=== PATIENT | female | born 1990 | race Caucasian/White ===

== ENCOUNTER 2018-06-30 21:18 | Emergency (ER) | payer OTHER ==
[2018-07-01] MEDS ORDERED: TETRACAINE HCL 0.5% OPH SOLN 4 ML OS ONE (01:09)
[2018-07-01] MEDS ORDERED: POLYMYXIN B SULFATE/TMP OPH SOLN 10 ML OS ONE (01:17)
--- NOTE | 2018-07-01 01:17 | ER Document Report ---
ED Foreign Body - General Chief Complaint: Foreign Body in Eye Stated Complaint: EYE PROBLEM Time Seen by Provider: 07/01/18 01:03 Primary Care Provider: SHAD SIERRA MD [ACTIVE STAFF] - Follow up as needed Notes: Patient is a 27-year-old female that comes to the emergency department for chief complaint of foreign body in the left eye. She states that she felt irritation, she looked in the mirror and noticed there was a foreign body, she poked it with her finger but was unable to get it out. She denies visual changes, visual loss, pain in her eye other than mild irritation symptom and foreign body sensation. She denies discharge, or even abnormal tears. She does not wear contacts or glasses. She denies any other complaints. She cannot think how she would have managed to get a foreign body in her eye. Past Medical History - General Information source: Patient - Social History Smoking Status: Never Smoker Frequency of alcohol use: None Drug Abuse: None Lives with: Family Family History: Reviewed & Not Pertinent - Medical History Medical History: Negative Surgical Hx: Negative - Immunizations Immunizations up to date: Yes Hx Diphtheria, Pertussis, Tetanus Vaccination: Yes Review of Systems - Review of Systems Constitutional: No symptoms reported EENT: See HPI Cardiovascular: No symptoms reported Respiratory: No symptoms reported Gastrointestinal: No symptoms reported Genitourinary: No symptoms reported Female Genitourinary: No symptoms reported Musculoskeletal: No symptoms reported Skin: No symptoms reported Hematologic/Lymphatic: No symptoms reported Neurological/Psychological: No symptoms reported Physical Exam - Vital signs Vitals: Temp Pulse Resp BP Pulse Ox 98.1 F 81 18 134/85 H 100 06/30/18 21:45 06/30/18 21:45 06/30/18 21:45 06/30/18 21:45 06/30/18 21:45 - Notes Notes: GENERAL: Alert, interacts well. No acute distress. HEAD: Normocephalic, atraumatic. EYES: Pupils equal, round, and reactive to light. Extraocular movements intact. Sclera of the left eye is mildly injected, right eye unremarkable. No discharge. There is a small superficial foreign body over the medial sclera, no embedded foreign body. No fluorescein uptake initially, negative Lisy sign. After removal of the foreign body with Q-tip there appears to be a small abrasion located just adjacent to this. ENT: Oral mucosa moist, tongue midline. Oropharynx unremarkable. Airway patent. Nares patent, no nasal septal hematoma, TM's intact. NECK: Full range of motion. Supple. Trachea midline. LUNGS: Clear to auscultation bilaterally, no wheezes, rales, or rhonchi. No respiratory distress. HEART: Regular rate and rhythm. No murmur ABDOMEN: Soft, non-tender. Non-distended. GENITOURINARY: Deferred EXTREMITIES: Moves all 4 extremities spontaneously. NEUROLOGICAL: Alert and oriented x3. Normal speech. SKIN: Warm, dry, normal turgor. No rashes or lesions noted. Course - Re-evaluation Re-evalutation: Normal pupils, normal EOMs, no discharge. There is mild injection of the left conjunctiva. There is a visible superficial foreign body over the sclera of the left eye medially. Tetracaine placed, examined the eye under floor seen, unremarkable, removed the foreign body easily with a Q-tip, this appeared to be a tiny piece of material, possibly even cloth. Examination of the eye after removal of the foreign body shows a possible small scratch over the sclera, probably because patient was poking at it. No other concerning findings. Placed on Polytrim, referred to ophthalmology, discussed return precautions. Patient states understanding and agreement. - Vital Signs Vital signs: Temp Pulse Resp BP Pulse Ox 98.0 F 72 16 118/72 100 07/01/18 01:37 07/01/18 01:37 07/01/18 01:37 07/01/18 01:37 07/01/18 01:37 Discharge - Discharge Clinical Impression: Foreign body of left eye Qualifiers: Encounter type: initial encounter Qualified Code(s): T15.92XA - Foreign body on external eye, part unspecified, left eye, initial encounter Condition: Stable Disposition: HOME, SELF-CARE Additional Instructions: The foreign body in the left eye has been removed. There does appear to be a t iny abrasion associated with this, as a result I recommend that you take the eyedrops as prescribed, 1 drop 4 times a day for 5 days. Follow-up with the registered nurse midwife referral for additional evaluation and management. Return for any concerning symptoms including developing pain, developing or spreading redness or swelling, loss of vision, or any other concerning symptoms. Referrals: SHAD SIERRA MD [ACTIVE STAFF] - Follow up as needed
[2018-07-01] MEDS ORDERED: POLYMYXIN B SULFATE/TMP OPH SOLN 10 ML ONE (01:25)
[2018-07-01 01:39] VITALS: BP 118/72
== END 2018-07-01 01:43 | disposition home or self-care (01) ==
LOC: ER 21:18
DX: T15.92XA Foreign body on external eye, part unspecified, left eye, initial encounter (principal); X58.XXXA Exposure to other specified factors, initial encounter
CPT/HCPCS: 99283; 65205; J3490 ×2

== ENCOUNTER 2019-10-13 21:41 | Emergency (ER) | payer OTHER ==
--- NOTE | 2019-10-13 23:09 | ER Document Report ---
ED Medical Screen (RME) - General Chief Complaint: Abdominal Pain Stated Complaint: BLOATED STOMACH, RIGHT ABDOMINAL PAIN, NAUSEA Time Seen by Provider: 10/13/19 23:04 Primary Care Provider: GIA HARRIS PA-C [Primary Care Provider] - Follow up as needed Mode of Arrival: Ambulatory Information source: Patient Notes: 29-year-old female patient presents emergency department chief complaint of about 1 week history of right upper quadrant abdominal pain, bloating, consistent belching and nausea. Patient reports she went to her doctor, they started her on omeprazole and scheduled her for a right upper quadrant ultrasound. She states that is not scheduled until the . She states the pain is persistent. She states moving makes the pain in her right upper quadrant worse. She denies any chronic medical conditions. Mild tenderness in the right upper quadrant, exam limited due to seated position in triage. I have greeted and performed a rapid initial assessment of this patient. A comprehensive ED assessment and evaluation of the patient, analysis of test results and completion of the medical decision making process will be conducted by additional ED providers. I have specifically instructed the patient or family members with the patient to immediately return to any nursing staff should anything change in the patient's condition or with their chief complaint. - Related Data Home Medications: Oral BC Past Medical History - Immunizations Immunizations up to date: Yes Hx Diphtheria, Pertussis, Tetanus Vaccination: Yes Physical Exam - Vital signs Vitals: Temp Pulse Resp BP Pulse Ox 98.2 F 74 20 121/85 97 10/13/19 21:53 10/13/19 21:53 10/13/19 21:53 10/13/19 21:53 10/13/19 21:53 Course - Vital Signs Vital signs: Temp Pulse Resp BP Pulse Ox 98.2 F 74 20 121/85 97 10/13/19 21:53 10/13/19 21:53 10/13/19 21:53 10/13/19 21:53 10/13/19 21:53 Doctor's Discharge - Discharge Referrals: GIA HARRIS PA-C [Primary Care Provider] - Follow up as needed
[2019-10-14 00:04] LABS: ABSOLUTE EOSINOPHILS # (AUTO) 0.1 10^3/uL (0.0-0.6); ABSOLUTE LYMPHOCYTES (AUTO) 1.9 10^3/uL (0.5-4.7); ABSOLUTE MONOCYTES (AUTO) 0.7 10^3/uL (0.1-1.4); ABSOLUTE NEUT (AUTO) 5.6 10^3/uL (1.7-8.2); BASOPHILS % (AUTO) 0.4 % (0-2); EOSINOPHILS % (AUTO) 1.8 % (0-6); HEMATOCRIT 39.5 % (36.0-47.0); HEMOGLOBIN 13.5 g/dL (12.0-15.5); LYMPHOCYTES % (AUTO) 22.7 % (13-45); MEAN CORPUSCULAR HEMOGLOBIN 30.3 pg (27.0-33.4); MEAN CORPUSCULAR HGB CONC 34.3 g/dL (32.0-36.0); MEAN CORPUSCULAR VOLUME 88 fl (80-97); MONOCYTES % (AUTO) 7.8 % (3-13); PLATELET COUNT 249 10^3/uL (150-450); RED BLOOD COUNT 4.48 10^6/uL (3.72-5.28); RED CELL DISTRIBUTION WIDTH 12.8 % (11.5-14.0); SEGMENTED NEUTROPHILS % (AUTO) 67.3 % (42-78); TOTAL CELLS COUNTED % (AUTO) 100 %; WHITE BLOOD COUNT 8.4 10^3/uL (4.0-10.5)
--- NOTE | 2019-10-14 00:15 | RADIOLOGY REPORT (SQ) ---
EXAM DESCRIPTION: US ABDOMEN LIMITED COMPLETED DATE/TME: 10/13/2019 23:07 CLINICAL HISTORY: RUQ pain COMPARISON: None. TECHNIQUE: Real-time sonographic images of the right upper abdomen were obtained using a curved multihertz transducer. FINDINGS: Pancreas: The visualized portions of the pancreas are unremarkable. Vascular: The visualized portions of the aorta and IVC are unremarkable. Liver: The liver has normal contour and echogenicity. Hepatopedal flow in the portal vein. Findings confirmed with color and spectral Doppler imaging. The common bile duct measures 0.2 cm. Gallbladder: The gallbladder is not well-distended. Negative reported sonographic Brice sign. No gallstones identified. Right Kidney: The right kidney measures 10.7 cm in length. No hydronephrosis, solid renal mass, or shadowing calculi. IMPRESSION: 1. No gallstones identified. The gallbladder is contracted.
[2019-10-14 00:21] LABS: ALBUMIN 4.3 g/dL (3.5-5.0); ALKALINE PHOSPHATASE 45 U/L (38-126); ANION GAP 9 (5-19); ASPARTATE AMINO TRANSFERASE 21 U/L (14-36); BILIRUBIN,DIRECT 0.2 mg/dL (0.0-0.4); BILIRUBIN,TOTAL 0.3 mg/dL (0.2-1.3); BLOOD UREA NITROGEN 15 mg/dL (7-20); CALCIUM 9.1 mg/dL (8.4-10.2); CARBON DIOXIDE 26 mmol/L (22-30); CHLORIDE 103 mmol/L (98-107); GLUCOSE 90 mg/dL (75-110); TOTAL PROTEIN 6.9 g/dL (6.3-8.2)
[2019-10-14] MEDS ORDERED: FAMOTIDINE 20 MG TABLET PO ONE (01:35)
[2019-10-14] MEDS ORDERED: ONDANSETRON ODT 4 MG TAB (6 TAB/ER DISP) PO PRN (01:35)
[2019-10-14] MEDS ORDERED: SUCRALFATE 1 GM TABLET PO ONE (01:35)
--- NOTE | 2019-10-14 01:36 | ER Document Report ---
ED GI/ - General Chief Complaint: Abdominal Pain Stated Complaint: BLOATED STOMACH, RIGHT ABDOMINAL PAIN, NAUSEA Time Seen by Provider: 10/13/19 23:04 Primary Care Provider: GIA HARRIS PA-C [Primary Care Provider] - Follow up as needed Mode of Arrival: Ambulatory Notes: Patient is a 29-year-old female that comes emergency department for chief complaint of approximately 1 week of pain in her upper abdomen. She states that pain is across her whole upper abdomen, she states that after she eats she feels bloated, she gets pain, she starts having nausea, and she starts belching tye quently. She denies flank pain, vomiting, fever, lower abdominal pain. She denies . She states she was seen by her primary care provider, she was started on omeprazole and scheduled for a right upper quadrant ultrasound which is not until the . Patient denies alcohol, smoking, recreational drugs, or any diagnosed medical history. She has not had any surgeries. - Related Data Allergies/Adverse Reactions: acetaminophen [From Lortab] Allergy (Verified 10/13/19 23:08) amoxicillin Allergy (Verified 10/13/19 23:08) hydrocodone [From Lortab] Allergy (Verified 10/13/19 23:08) meloxicam Allergy (Verified 10/13/19 23:08) Home Medications: Oral BC Past Medical History - General Information source: Patient - Social History Smoking Status: Never Smoker Drug Abuse: None Lives with: Family Family History: Reviewed & Not Pertinent Patient has homicidal ideation: No - Immunizations Immunizations up to date: Yes Hx Diphtheria, Pertussis, Tetanus Vaccination: Yes Review of Systems - Review of Systems Constitutional: No symptoms reported EENT: No symptoms reported Cardiovascular: No symptoms reported Respiratory: No symptoms reported Gastrointestinal: See HPI Genitourinary: No symptoms reported Female Genitourinary: No symptoms reported Musculoskeletal: No symptoms reported Skin: No symptoms reported Hematologic/Lymphatic: No symptoms reported Neurological/Psychological: No symptoms reported Physical Exam - Vital signs Vitals: Temp Pulse Resp BP Pulse Ox 98.2 F 74 20 121/85 97 10/13/19 21:53 10/13/19 21:53 10/13/19 21:53 10/13/19 21:53 10/13/19 21:53 - Notes Notes: GENERAL: Alert, interacts well. No acute distress. HEAD: Normocephalic, atraumatic. EYES: Pupils equal, round, and reactive to light. Extraocular movements intact. ENT: Oral mucosa moist, tongue midline. Oropharynx unremarkable. Airway patent. NECK: Full range of motion. Supple. Trachea midline. No lymphadenopathy. LUNGS: Clear to auscultation bilaterally, no wheezes, rales, or rhonchi. No respiratory distress. Non-tender chest wall. HEART: Regular rate and rhythm. No murmur ABDOMEN: Tender in the epigastric area and mainly in the left upper quadrant area. Right upper quadrant is unremarkable. Lower abdomen unremarkable. No guarding or rigidity. No overt distention. Bowel sounds present throughout. EXTREMITIES: Moves all 4 extremities spontaneously. No edema, normal radial and dorsalis pedis pulses bilaterally. No cyanosis. BACK: no cervical, thoracic, lumbar midline tenderness. No saddle anesthesia, normal distal neurovascular exam. Moves all extremities in full range of motion. NEUROLOGICAL: Alert and oriented x3. Normal speech. Cranial nerves II through XII grossly intact. Strength 5/5 in all extremities. PSYCH: Normal affect, normal mood. SKIN: Warm, dry, normal turgor. No rashes or lesions noted. Course - Re-evaluation Re-evalutation: Patient is well-appearing on exam. On exam she axis tenderness in the epig astric and left upper quadrant, right upper quadrant is completely benign. When I asked patient to point to the area of pain she points to the left upper quadrant. I did review ultrasound of the upper abdomen and this was unremarkable, CBC, chemistry, lipase, urinalysis, test all unremar kable and negative. Based on her symptoms worsening with food, frequent belching, and location of pain with negative work-up otherwise I strongly suspect gastritis. Patient will be treated accordingly, discussed expectations, follow-up, return precautions. Patient states understanding and agreement. - Vital Signs Vital signs: Temp Pulse Resp BP Pulse Ox 98.0 F 76 14 119/84 100 10/14/19 02:12 10/14/19 02:12 10/14/19 02:12 10/14/19 02:12 10/14/19 02:12 - Laboratory Result Diagrams: 10/13/19 23:28 10/13/19 23:28 Discharge - Discharge Clinical Impression: Upper abdominal pain Condition: Stable Disposition: HOME, SELF-CARE Additional Instructions: Your work-up does not show any concerning findings. Your evaluation is most consistent with gastritis, inflammation of the upper gastrointestinal tract. You can take Zofran for nausea if needed, take Carafate and Pepcid as prescribed to help treat this, you can continue your current omeprazole. You can also take additional Rolaids, Tums, Maalox, etc. if needed. You can take Tylenol for pain. Avoid NSAIDs, alcohol, smoking, caffeine, spicy food. Start with clear fluids, progress to bland diet. Follow-up with primary care for additional evaluation and treatment including possible H. pylori testing or even endoscopy. Return if you worsen including uncontrolled vomiting, vomiting blood, black stools, severe pain, fever of 100.4 or greater, or any other concerning or worsening symptoms. Prescriptions: Sucralfate [Carafate 1 gm Tablet] 1 gm PO QID #20 tablet Famotidine [Pepcid 20 mg Tablet] 20 mg PO DAILY #20 tablet Ondansetron [Zofran Odt 4 mg Tablet] 1 - 2 tab PO Q4H PRN #15 tab.rapdis PRN Reason: For Nausea/Vomiting Referrals: GIA HARRIS PA-C [Primary Care Provider] - Follow up as needed
[2019-10-14 01:41] LABS: APPEARANCE,URINE CLEAR; BILIRUBIN,URINE NEGATIVE (NEGATIVE); COLOR,URINE STRAW; GLUCOSE, URINE NEGATIVE (NEGATIVE); KETONES,URINE NEGATIVE (NEGATIVE); LEUKOCYTE ESTERASE,URINE NEGATIVE (NEGATIVE); NITRITE,URINE NEGATIVE (NEGATIVE); PROTEIN,URINE NEGATIVE (NEGATIVE); URINE SPECIFIC GRAVITY 1.009; UROBILINOGEN,URINE NEGATIVE mg/dL (<2.0)
[2019-10-14 02:52] VITALS: BP 119/84
== END 2019-10-14 02:11 | disposition home or self-care (01) ==
LOC: ER 21:41
DX: R10.10 Upper abdominal pain, unspecified (principal); R11.0 Nausea; R14.0 Abdominal distension (gaseous); Z88.6 Allergy status to analgesic agent; Z88.0 Allergy status to penicillin
CPT/HCPCS: 36415; 76705; 80053; 81001; 81025; 83690; 85025; 99284

== ENCOUNTER 2019-10-30 07:50 | Day surgery (SDC) | payer OTHER ==
[~2019-10-30 07:50] MED LIST: PROPOFOL INJ 200 MG/20 ML VIAL IV ONE
--- NOTE | 2019-10-30 09:22 | Operative Report ---
Operative Report DATE OF SURGERY: 10/30/19 Operative Report: The risks benefits and alternatives of the procedure explained to the patient in detail and informed consent is obtained.A GIF Olympus video scope was inserted into the patient's mouth and hypopharynx ,the esophagus is identified intubated and insufflated ,the scope was then advanced through the esophagus stomach and duodenum ,retroflexion maneuver is done ,the esophagus stomach and first and second portions of the duodenum examined PREOPERATIVE DIAGNOSIS: Dyspepsia POSTOPERATIVE DIAGNOSIS: Gastritis status post biopsy OPERATION: EGD with biopsy SURGEON: JUANA MATOS ANESTHESIA: LMAC TISSUE REMOVED OR ALTERED: As noted above. COMPLICATIONS: None. ESTIMATED BLOOD LOSS: None. INTRAOPERATIVE FINDINGS: As noted above. PROCEDURE: Patient tolerated the procedure well. No immediate postprocedure complications are noted. Patient is discharged in good condition. Discharge date 10/30/2019. Discharge diet: Regular. Discharge activity: Regular. 2 to 3-week follow-up to discuss findings. Patient is instructed to call the office or proceed to the emergency room should there be any further problems or questions. Wait on the pathology.
[2019-10-30 09:57] VITALS: BP 114/74
== END 2019-10-30 10:15 | disposition home or self-care (01) ==
LOC: END 07:50
PROVIDERS: ATTEND Internal Medicine Gastroenterology
DX: K29.50 Unspecified chronic gastritis without bleeding (principal); K21.9 Gastro-esophageal reflux disease without esophagitis; Z88.1 Allergy status to other antibiotic agents; Z68.20 Body mass index [BMI] 20.0-20.9, adult; Z79.3 Long term (current) use of hormonal contraceptives; Z88.8 Allergy status to other drugs, medicaments and biological substances; Z03.818 Encounter for observation for suspected exposure to other biological agents ruled out
CPT/HCPCS: 43239; 88305 ×2; J2704; 731

== ENCOUNTER 2019-12-09 21:16 | Emergency (ER) | payer OTHER ==
[2019-12-09 21:33] VITALS: BP 143/87
--- NOTE | 2019-12-09 21:39 | ER Document Report ---
ED Medical Screen (RME) - General Chief Complaint: Chest Pain Stated Complaint: LEFT SIDED CHEST PAIN Time Seen by Provider: 12/09/19 21:30 Primary Care Provider: GIA HARRIS PA-C [Primary Care Provider] - Follow up as needed - [facility] Notes: 12/09/19 21:37 29-year-old female to the emergency department with acute onset chest pain and shortness of breath that began tonight at about 8:00. She states she was hanging out with her family and laying in a recliner with her child when all of a sudden she had a sharp intense left chest pain and felt like she could not breathe. She states that it ran into her left shoulder. She states that her sat her up in the recliner and then the intense feeling of not being able to take of breath passed after about 2 minutes. She states now her left arm feels Sore and so does her chest wall. Denies any cough, blunt trauma, recent falls, recent exercise regimen chain, heavy lifting. She is not been running any fevers or had a sore throat. Not been in contact with anybody ill. There is no family history of heart disease. She is not a hypertensive, diabetic, hyperlipidemic patient. She does not smoke. She is on oral control. She reports that she is not had any leg swelling but last night in the back of her calf and her right leg, she had pain. She states that when she awoke this morning the pain was gone. She is never had a clot before. On brief medical screening exam there is some mild tenderness to palpation to the left upper chest wall without crepitus or step-off. Lungs are clear to auscultation. I performed a brief medical screening exam on the patient determined that the patient needs further evaluation and management by main side provider. I have placed initial orders to help expedite care. - Related Data Allergies/Adverse Reactions: acetaminophen [From Lortab] Allergy (Verified 12/09/19 21:30) amoxicillin Allergy (Verified 12/09/19 21:30) hydrocodone [From Lortab] Allergy (Verified 12/09/19 21:30) meloxicam Allergy (Verified 12/09/19 21:30) Past Medical History - Past Medical History Cardiac Medical History: Denies: Hx Coronary Artery Disease, Hx Heart Attack, Hx Hypertension Pulmonary Medical History: Denies: Hx Asthma, Hx Bronchitis, Hx COPD, Hx Pneumonia Neurological Medical History: Denies: Hx Cerebrovascular Accident, Hx Seizures Musculoskeltal Medical History: Denies Hx Arthritis - Immunizations Immunizations up to date: Yes Hx Diphtheria, Pertussis, Tetanus Vaccination: Yes Physical Exam - Vital signs Vitals: Temp Pulse Resp BP Pulse Ox 98.3 F 80 16 143/87 H 98 12/09/19 21:32 12/09/19 21:32 12/09/19 21:32 12/09/19 21:32 12/09/19 21:32 Course - Vital Signs Vital signs: Temp Pulse Resp BP Pulse Ox 98.3 F 80 16 143/87 H 98 12/09/19 21:34 12/09/19 21:34 12/09/19 21:34 12/09/19 21:34 12/09/19 21:34 Doctor's Discharge - Discharge Referrals: GIA HARRIS PA-C [Primary Care Provider] - Follow up as needed
[2019-12-09 22:05] LABS: ABSOLUTE EOSINOPHILS # (AUTO) 0.1 10^3/uL (0.0-0.6); ABSOLUTE LYMPHOCYTES (AUTO) 1.9 10^3/uL (0.5-4.7); ABSOLUTE MONOCYTES (AUTO) 0.5 10^3/uL (0.1-1.4); ABSOLUTE NEUT (AUTO) 4.9 10^3/uL (1.7-8.2); BASOPHILS % (AUTO) 0.6 % (0-2); EOSINOPHILS % (AUTO) 1.7 % (0-6); HEMATOCRIT 39.5 % (36.0-47.0); HEMOGLOBIN 13.7 g/dL (12.0-15.5); LYMPHOCYTES % (AUTO) 25.6 % (13-45); MEAN CORPUSCULAR HGB CONC 34.7 g/dL (32.0-36.0); MEAN CORPUSCULAR VOLUME 87 fl (80-97); MONOCYTES % (AUTO) 7.1 % (3-13); PLATELET COUNT 251 10^3/uL (150-450); RED BLOOD COUNT 4.56 10^6/uL (3.72-5.28); TOTAL CELLS COUNTED % (AUTO) 100 %; WHITE BLOOD COUNT 7.6 10^3/uL (4.0-10.5)
[2019-12-09 22:17] LABS: ALBUMIN 4.1 g/dL (3.5-5.0); ALKALINE PHOSPHATASE 44 U/L (38-126); ANION GAP 11 (5-19); ASPARTATE AMINO TRANSFERASE 20 U/L (14-36); BILIRUBIN,TOTAL 0.2 mg/dL (0.2-1.3); BLOOD UREA NITROGEN 16 mg/dL (7-20); CALCIUM 9.4 mg/dL (8.4-10.2); CARBON DIOXIDE 25 mmol/L (22-30); CHLORIDE 102 mmol/L (98-107); GLUCOSE 115 mg/dL (75-110); POTASSIUM 4.5 mmol/L (3.6-5.0); TOTAL PROTEIN 6.9 g/dL (6.3-8.2)
--- NOTE | 2019-12-09 22:41 | RADIOLOGY REPORT (SQ) ---
EXAM DESCRIPTION: XR CHEST 2 VIEWS COMPLETED DATE/TME: 12/09/2019 21:36 CLINICAL HISTORY: 29 years, Female, chest pain, SOB EXAM DESCRIPTION: CLINICAL HISTORY: chest pain, SOB COMPARISON: None. FINDINGS: Two views of the chest are submitted. There is mild rightward scoliosis. Cardiac silhouette appears normal. No focal parenchymal or pleural disease. There is no significant pulmonary vascular engorgement. IMPRESSION: No evidence of acute cardiopulmonary disease.
--- NOTE | 2019-12-10 01:10 | ER Document Report ---
ED General - General Chief Complaint: Chest Pain Stated Complaint: LEFT SIDED CHEST PAIN Time Seen by Provider: 12/09/19 21:30 Primary Care Provider: GIA HARRIS PA-C [Primary Care Provider] - Follow up in 1 week Notes: Patient is a 29-year-old female that comes emergency department for chief complaint of left-sided chest pain. She states that at 8:00 she was sitting in recliner when she suddenly started having a sharp pain. She states the pain is significantly improved now, it lasted sharply for about 2 minutes, she states now she can notice it but she only really notices it if she takes a deep breath. She denies injury, cough, fever/chills, nausea, vomiting, abdominal pain, back pain. When asked about calf pain she states she had sharp right calf pain last night but this resolved today. She is on oral contraceptive, does not smoke, denies recent travel or surgery, denies personal or family history of blood clot. She denies personal family history of CAD, LMP 2 weeks ago. - Related Data Allergies/Adverse Reactions: acetaminophen [From Lortab] Allergy (Verified 12/09/19 21:30) amoxicillin Allergy (Verified 12/09/19 21:30) hydrocodone [From Lortab] Allergy (Verified 12/09/19 21:30) meloxicam Allergy (Verified 12/09/19 21:30) Past Medical History - General Information source: Patient - Social History Smoking Status: Never Smoker Frequency of alcohol use: None Drug Abuse: None Lives with: Family Family History: Reviewed & Not Pertinent Patient has homicidal ideation: No - Past Medical History Cardiac Medical History: Denies: Hx Coronary Artery Disease, Hx Heart Attack, Hx Hypertension Pulmonary Medical History: Denies: Hx Asthma, Hx Bronchitis, Hx COPD, Hx Pneumonia Neurological Medical History: Denies: Hx Cerebrovascular Accident, Hx Seizures Musculoskeletal Medical History: Denies Hx Arthritis Surgical Hx: Negative - Immunizations Immunizations up to date: Yes Hx Diphtheria, Pertussis, Tetanus Vaccination: Yes Review of Systems - Review of Systems Constitutional: No symptoms reported EENT: No symptoms reported Cardiovascular: See HPI Respiratory: See HPI Gastrointestinal: No symptoms reported Genitourinary: No symptoms reported Female Genitourinary: No symptoms reported Musculoskeletal: No symptoms reported Skin: No symptoms reported Hematologic/Lymphatic: No symptoms reported Neurological/Psychological: No symptoms reported Physical Exam - Vital signs Vitals: Temp Pulse Resp BP Pulse Ox 98.3 F 80 16 143/87 H 98 12/09/19 21:32 12/09/19 21:32 12/09/19 21:32 12/09/19 21:32 12/09/19 21:32 - Notes Notes: GENERAL: Alert, interacts well. No acute distress. HEAD: Normocephalic, atraumatic. EYES: Pupils equal, round, and reactive to light. Extraocular movements intact. ENT: Oral mucosa moist, tongue midline. Oropharynx unremarkable. Airway patent. NECK: Full range of motion. Supple. Trachea midline. No lymphadenopathy. LUNGS: Clear to auscultation bilaterally, no wheezes, rales, or rhonchi. No respiratory distress. There is some mild reproducible tenderness over the mid left anterior chest wall without erythema, swelling, crepitus, or significant tenderness. Pleuritic pain reported by patient with deep breaths. HEART: Regular rate and rhythm. No murmur ABDOMEN: Soft, non-tender. Non-distended. EXTREMITIES: Moves all 4 extremities spontaneously. No edema, normal radial and dorsalis pedis pulses bilaterally. No cyanosis. BACK: no cervical, thoracic, lumbar midline tenderness. No saddle anesthesia, normal distal neurovascular exam. Moves all extremities in full range of motion. NEUROLOGICAL: Alert and oriented x3. Normal speech. Cranial nerves II through XII grossly intact. Strength 5/5 in all extremities. PSYCH: Normal affect, normal mood. SKIN: Warm, dry, normal turgor. No rashes or lesions noted. Course - Re-evaluation Re-evalutation: Patient is alert and well-appearing on my exam. She is talkative and has no signs of distress. Vital signs unremarkable other than borderline elevated blood pressure. Patient does have some reproducible chest pain over the left side of the chest and she has pleuritic pain which is mild. She has no calf tenderness on my examination, negative Homans' sign, however she does report pleuritic pain, calf pain yesterday, and she is on oral contraceptive. D-dimer was performed and this was negative. No tachycardia, hypoxia, reported shortness of breath, and she ambulates without any dyspnea. EKG and troponin are negative. Work-up otherwise unremarkable, test negative. This appears to be combination of chest wall/pleuritic pain without evidence of acute intrathoracic etiology. Discussed with patient. She has a history of gastritis and recently had an endoscopy, wants to avoid p.o. anti-inflammatories, given Decadron IM instead here. Discussed expectations, follow-up, return precautions. Patient states appreciation and agreement. - Vital Signs Vital signs: Temp Pulse Resp BP Pulse Ox 98.3 F 80 16 143/87 H 98 12/09/19 21:34 12/09/19 21:34 12/09/19 21:34 12/09/19 21:34 12/09/19 21:34 - Laboratory Result Diagrams: 12/09/19 21:55 12/09/19 21:55 Laboratory results interpreted by me: 12/09/19 21:55 Glucose 115 H - EKG Interpretation by Me Additional EKG results interpreted by me: EKG shows sinus rhythm at a rate of 79, QTc 386, normal axis, no T wave inversions or ST segment changes in consecutive leads, machine reads as normal Discharge - Discharge Clinical Impression: Left-sided chest pain, Pleuritic chest pain, Chest wall pain Condition: Stable Disposition: HOME, SELF-CARE Additional Instructions: Your work-up does not show any concerning findings, your evaluation is reassuring. This is most likely either chest wall pain or pleurisy as we discussed. I recommend heat to the area, Tylenol for pain, you have been given Decadron to help your symptoms recover faster. Follow-up with primary care. Return if you worsen including difficulty breathing, passing out, fever, or any other concerning or worsening symptoms. Forms: Return to Work Referrals: GIA HARRIS PA-C [Primary Care Provider] - Follow up in 1 week
[2019-12-10] MEDS ORDERED: DEXAMETHASONE SOD PHOS INJ 10 MG/1 ML VIAL IM ONE (02:04)
[2019-12-10] MEDS ORDERED: DEXAMETHASONE SOD PHOSPHATE INJ 4 MG/1 ML VIAL ONE (02:22)
--- NOTE | 2019-12-10 06:26 | EKG REPORT ---
SEVERITY:- NORMAL ECG - SINUS RHYTHM : Confirmed by: Dale Ross MD 10-Dec-2019 06:25:46
== END 2019-12-10 02:30 | disposition home or self-care (01) ==
LOC: ER 21:16
DX: R07.81 Pleurodynia (principal); R07.89 Other chest pain; Z88.6 Allergy status to analgesic agent; Z88.0 Allergy status to penicillin; Z79.3 Long term (current) use of hormonal contraceptives
CPT/HCPCS: 93005; 99285; 96372; 36415; 84703; 85025; 80053; 84484; 85379; 71046; 93010; J1100